=== PATIENT | male | born 2000 | race Two or more races ===

== ENCOUNTER 2019-06-01 15:43 | Emergency (ER) | payer OTHER ==
[~2019-06-01] VITALS: Ht 182.9 cm; Wt 79.8 kg
== END 2019-06-01 18:40 | disposition home or self-care (01) ==
LOC: ER 15:43
DX: J31.2 Chronic pharyngitis (principal)

== ENCOUNTER 2020-10-29 13:46 | Emergency (ER) | payer OTHER ==
[~2020-10-29] VITALS: Ht 182.9 cm; Wt 76.2 kg
[2020-10-29] MEDS ORDERED: DOLOGEN 325-11 EACH PO (16:28)
== END 2020-10-29 16:41 | disposition home or self-care (01) ==
LOC: ER 13:46 → EMR PED 14:02
DX: R07.81 Pleurodynia (principal); Z03.818 Encounter for observation for suspected exposure to other biological agents ruled out

== ENCOUNTER → 2021-07-14 | Emergency (ER) | payer OTHER ==
[~2021-07-14] VITALS: Ht 182.9 cm; Wt 82.6 kg
[~2021-07-14] MED LIST: DOLOGEN 325-11 EACH PO
== END | disposition home or self-care (01) ==
LOC: ER 11:48
DX: B34.9 Viral infection, unspecified (principal)